=== PATIENT | female | born 1970 | race Caucasian/White ===

== ENCOUNTER → 2016-09-12 | Outpatient (CLI) | payer OTHER ==
[~2016-09-12] MED LIST: ACET-789 PO; ASPI-586 PO; IBUP-1773 PO; LISI-552 PO; METO-270 PO
--- OUTSIDE RECORDS SUMMARY | 2016-09-12 11:03 | XMS REPORT ---
Author FRANCISCO Corrales Organization [employer] Address Unknown Phone Unavailable Care Team Providers Care Herd Tester Name Role Phone FRANCISCO ERICKSON CP Unavailable Allergies, Adverse Reactions, Alerts Substance Reaction Event Type N.K.D.A. 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 , unspecified vessel or lesion type I25.10 Active Problem Hyperlipidemia, unspecified hyperlipidemia E78.5 Active Medications Medication Code System Code Instructions Start Date End Date Status Dosage Metoprolol Tartrate [facility] [address]-20 25 MG Orally Twice a day 1 tablet Aspirin [facility] [address]-02 81 mg Mar 31, 2012 chew 1 tablet (81 mg ) by oral route once daily Ranitidine HCl [facility] [address]-01 150 MG Orally twice a day 1/2 tablet Atorvastatin Calcium [facility] [address]-37 20 mg Orally Once a day 1 tablet Norethindrone Acetate [facility] [address]-95 10 mg Orally Take at the same time daily May 08, 2016 1 tablet Procedures Procedure Coding System Code Date Preventive Care Est Pt. Age 40-64 CPT-4 81557 May 22, 2016 SPECIMEN HANDLING CPT-4 80995 May 22, 2016 Vital Signs Date/Time: May 22, 2016 Cardiac Monitoring Heart Rate 80 bpm Weight 240.6 lbs Height 66 in BMI 38.83 Index Blood Pressure Diastolic 86 mmHg Blood Pressure Systolic 128 mmHg Results Name Result Date Reference Range Unit Abnormality Flag PAP TEST W/ HPV REGARDLESS ----. . [id number] ----HPV, high-risk Negative [id number] Negative PDF Report ----PDF Report1 [facility] [id number] Summary Purpose [employer] Submission
--- NOTE | 2016-09-12 13:28 | Diagnostic Imaging Report ---
INDICATION: Intermittent dysfunctional vaginal bleeding since 07/19/2016. COMPARISON: None. DISCUSSION: Transabdominal and transvaginal sonographic evaluation of the pelvis was performed. The uterus is normal in echotexture and size measuring 8.9 x 5.9 x 4.7 cm. Heterogeneous solid focus within the right uterine myometrium likely represents a small fibroid measuring 1.7 cm. There is no definite submucosal component identified with ultrasound. Normal endometrial thickness measuring 1.3 cm. The right ovary was not visualized. The left ovary is normal in echotexture and size with normal color Doppler blood flow. The left ovary measures 3.6 x 2.4 x 2.0 cm. No abnormal adnexal mass or fluid. IMPRESSION: 1. Suspect small uterine fibroid. 2. Nonvisualization of the right ovary. Dictated by: Dictated on workstation # [id number]
== END ==
LOC: RAD 11:00
PROVIDERS: ATTEND Family Medicine
DX: N92.1 Excessive and frequent menstruation with irregular cycle (principal)
CPT/HCPCS: 76830; 76856

== ENCOUNTER 2016-11-13 09:45 | Outpatient (CLI) | payer OTHER ==
[~2016-11-13] VITALS: Ht 167.6 cm; Wt 110.7 kg
[2016-11-13] MEDS ORDERED: LISI-552 PO (10:04)
[2016-11-13] MEDS ORDERED: ASPI-586 PO (10:04)
[2016-11-13] MEDS ORDERED: METO-270 PO (10:04)
[2016-11-13 10:05] VITALS: BP 151/91
[2016-11-13 10:32] LABS: BASOPHILS # (AUTO) 0.1 10^3/uL (0.0-0.1); BASOPHILS % (AUTO) 1 % (0-10); EOSINOPHILS % (AUTO) 0 % (0-10); LYMPHOCYTES # (AUTO) 1.9 X 10^3 (1.0-4.0); LYMPHOCYTES % (AUTO) 28 % (12-44); MEAN CORPUSCULAR HEMOGLOBIN 28 PG (25-34); MEAN CORPUSCULAR HGB CONC 32 G/DL (32-36); MEAN CORPUSCULAR VOLUME 88 FL (80-99); MONOCYTES # (AUTO) 0.6 X 10^3 (0.0-1.0); MONOCYTES % (AUTO) 9 % (0-12); NEUTROPHILS # (AUTO) 4.2 X 10^3 (1.8-7.8); NEUTROPHILS % (AUTO) 62 % (42-75); PLATELET COUNT 227 10^3/uL (130-400); RED BLOOD COUNT 4.97 10^6/uL (4.35-5.85); RED CELL DISTRIBUTION WIDTH 14.8 % (10.0-14.5); WHITE BLOOD COUNT 6.8 10^3/uL (4.3-11.0)
== END 2016-11-13 10:15 | disposition home or self-care (01) ==
LOC: PREOP 09:45
PROVIDERS: ATTEND Obstetrics & Gynecology
DX: Z01.812 Encounter for preprocedural laboratory examination (principal); Z11.2 Encounter for screening for other bacterial diseases; D25.9 Leiomyoma of uterus, unspecified
CPT/HCPCS: 36415; 85025; 86850; 86900; 86901; 87081

== ENCOUNTER 2016-11-20 09:25 | Day surgery (SDC) | payer OTHER ==
[~2016-11-20] VITALS: Ht 167.6 cm; Wt 110.7 kg
[~2016-11-20 09:25] MED LIST changes: -ACET-789 PO; -IBUP-1773 PO
[2016-11-20] MEDS ORDERED: FAMOTIDINE 20MG/2ML IV (PEPCID) ONE (09:38)
[2016-11-20] MEDS ORDERED: LACTATED RINGERS 1,000 ML IV PRN (09:41)
[2016-11-20] MEDS ORDERED: FAMOTIDINE 20MG/2ML IV (PEPCID) IV ONE (09:45)
[2016-11-20] MEDS ORDERED: MIDAZOLAM 2 MG/2 ML (VERSED) VIAL ONE (10:04)
[2016-11-20] MEDS ORDERED: fentaNYL INJECTION 100 MCG/2 ML AMP ONE (10:04)
[2016-11-20] MEDS ORDERED: proPOfol 200 MG/20 ML (DIPRIVAN) VIAL IV ONE (10:04)
[2016-11-20 10:09] VITALS: BP 140/89
[2016-11-20] MEDS ORDERED: BUPIVACAINE 0.25% 30 ML (SENSORCAINE) VIAL ONE (10:14)
--- NOTE | 2016-11-20 10:27 | Progress Note-Pre Operative ---
Pre-Operative Progress Note H&P Reviewed The H&P was reviewed, patient examined and no changes noted. Date H&P Reviewed: Nov 20, 2016 Time H&P Reviewed: 10:15 Pre-Operative Diagnosis: AUB, Fibroid uterus RACHID MIRANDA DO Nov 20, 2016 10:27 am
[2016-11-20] MEDS ORDERED: morphine INJ 10 MG/ML 1ML (SYR OR VIAL) IVP PRN (11:00)
[2016-11-20] MEDS ORDERED: HYDROmorphone (DILAUDID) 2 MG/ML VIAL IVP PRN (11:00)
[2016-11-20] MEDS ORDERED: ONDANSETRON 4 MG/2 ML (SDV) Z0FRAN IVP PRN ×2 (11:00→11:45)
[2016-11-20] MEDS ORDERED: LACTATED RINGERS 2,000 ML IV ONE (11:22)
[2016-11-20] MEDS ORDERED: ONDANSETRON 4 MG/2 ML (SDV) Z0FRAN ONE (11:22)
[2016-11-20] MEDS ORDERED: KETOROLAC 30 MG/ML VIAL ONE (11:22)
[2016-11-20] MEDS ORDERED: SEVOFLURANE (ULTANE) 15 ML INHAL SOLN ONE (11:29)
[2016-11-20] MEDS ORDERED: D5 LR IV SOLUTION 1,000 ML IV SCH (11:44)
[2016-11-20] MEDS ORDERED: KETOROLAC 30 MG/ML VIAL IVP ONE (11:45)
[2016-11-20] MEDS ORDERED: morphine INJ 10 MG/ML 1ML (SYR OR VIAL) ONE (11:46)
[2016-11-20] MEDS ORDERED: IBUP-1773 PO (11:47)
[2016-11-20] MEDS ORDERED: ACET-789 PO (11:47)
--- NOTE | 2016-11-20 11:48 | Discharge Inst-Women's Service ---
Discharge Inst-Women's Serv Depart Medication/Instructions New, Converted or Re-Newed RX: RX on Chart Consults/Follow Up Additional Follow Up: Yes Orders/Referrals Dr. Miranda in 2-5 weeks Activity Activity: Activity as Tolerated Driving Instructions: You May Drive (do not drive while taking codiene) NO SMOKING: NO SMOKING Nothing Inside Vagina: No Douching, No Lamont, No Tampons Diet Discharge Diet: No Restrictions Symptoms to Report to : Bleeding Excessive, Pain Increased, Fever Over 101 Degrees F, Vaginal Bleeding Increase, Questions/Concerns For Any Problems or Questions: Contact Your Physician Skin/Wound Care Bathing Instructions: Shower (x 2 weeks) RACHID MIRANDA DO Nov 20, 2016 11:48
[2016-11-20 12:25] VITALS: BP 131/74
[2016-11-20 12:55] VITALS: BP 100/50
[2016-11-20 13:25] VITALS: BP 101/60
--- NOTE | 2016-11-21 03:49 | OPERATIVE REPORT ---
DATE OF SERVICE: 11/20/2016 PREOPERATIVE DIAGNOSES: 1. A 46-year-old female with abnormal uterine bleeding. 2. Fibroid uterus. POSTOPERATIVE DIAGNOSES: 1. A 46-year-old female with abnormal uterine bleeding. 2. Fibroid uterus. PROCEDURE: D and C, hysteroscopy with frozen section and NovaSure endometrial ablation. SURGEON: Rachid Miranda DO ANESTHESIA: General endotracheal. ESTIMATED BLOOD LOSS: Minimal. URINE OUTPUT: 50 mL, clear at the end of procedure. FLUIDS: 1 L of lactated Ringer's solution. FINDINGS: Appropriate-appearing secretory phase endometrium that was identified on frozen section. No evidence of malignancy or hyperplasia. Normal-appearing vaginal mucosa and cervix. INDICATIONS FOR PROCEDURE: This 46-year-old female was a consultation in my office from an outside provider for abnormal uterine bleeding. She had been tried on Provera to try and decrease her bleeding; however, this is a short-term therapy and did not resolve her issue. She was not a candidate for hormonal alternatives and treatments. Therefore, I discussed with the patient hysterectomy or ablation. Due to the short-term recovery and the conservative nature of an ablation, we decided to proceed with this. The patient was unable to tolerate endometrial biopsy in the office, so I spoke with the patient about doing a D and C and sending the endometrial curettings for frozen section. The patient was agreeable to do this. The procedure was discussed in detail including risks and everything was answered prior to starting the procedure. The consent was obtained in the preoperative room with all of her family present. The patient was then taken to the operating room. OPERATIVE REPORT IN DETAIL: Once in the operating room, general anesthesia was found to be adequate, she was placed in the dorsal lithotomy position, prepped and draped in normal sterile fashion. First, we examined the patient under anesthesia. The uterus is not enlarged, fully immobile. There is no adnexal fullness or masses appreciated on bimanual examination. A weighted speculum was inserted into the patient's vagina and a right angle retractor was placed to visualize the cervix, which was grasped at the 12 o'clock position using a long Allis clamp. I then performed paracervical block at 3 and 9 o'clock position using 0.25% Marcaine. Care was taken to aspirate before injecting. A total of 10 mL was used, 5 mL in each injection site. I then gently sounded the uterine cavity, depth was found to be approximately 7 cm. I then proceeded with collecting endometrial curettings after dilating the cervix using haigar dilators. The curettings were collected using endometrial curets and sent for frozen section. Once the frozen section pathology came back as negative for malignancy, I then proceeded with NovaSure endometrial ablation at setting of 4.5 cm of cavity depth and 3 cm cavity width. I placed the NovaSure device in the endometrial cavity, started the device up without difficulty. Device completed cycle. It was then removed and there was evidence of kendall on the NovaSure device after removal of the device. I then hysteroscoped the patient using normal saline as a visual medium after which, and there was no evidence of perforation or endometrial abnormalities or protrusions. After which, the procedure was complete. I removed all the instruments from the patient's vagina. The patient tolerated the procedure well, taken to the recovery area in stable condition. Lap and sponge count was correct at the end of the procedure. Instrument count is correct as well. Job ID: [id number] DocumentID: [id number] Dictated Date: 11/20/2016 12:38:42 Clinical Nursing Professor Date: 11/21/2016 02:46:39 Dictated By: RACHID MIRANDA DO [facility]
== END 2016-11-20 13:30 | disposition home or self-care (01) ==
LOC: SDC 09:25
PROVIDERS: ATTEND Obstetrics & Gynecology
DX: N93.9 Abnormal uterine and vaginal bleeding, unspecified (principal); D25.9 Leiomyoma of uterus, unspecified
CPT/HCPCS: 84703; 88305; 88331